=== PATIENT | male | born 1965 | race Caucasian/White ===

== ENCOUNTER 2023-03-22 13:52 | Emergency (ER) | payer OTHER ==
[~2023-03-22] VITALS: Ht 175.3 cm; Wt 88.5 kg
[~2023-03-22 13:52] MED LIST: KETO10TA2 PO; NORFLEX100 MG PO; ORPH100T PO; TORADOL10 MG PO
[2023-03-22] MEDS ORDERED: LOSARTAN POTAS100 MG (14:02)
[2023-03-22] MEDS ORDERED: SYNTHROID75 MCG (14:02)
[2023-03-22 14:44] LABS: HEMATOCRIT 39.7 % (39.0-48.0); HEMOGLOBIN 13.1 g/dL (13-16.00); MEAN CORPUSCULAR HEMOGLOBIN 29.6 pg (27.00-32.0); MEAN CORPUSCULAR HGB CONC 32.9 g/dl (32.0-36.0); PLATELET COUNT 180 K/uL (150-450); RED BLOOD COUNT 4.41 M/uL (4.00-6.00); RED CELL DISTRIBUTION WIDTH 14.5 % (11.5-14.5)
[2023-03-22 14:51] LABS: CALCIUM 8.8 mg/dL (8.5-10.1); CREATININE SERUM 1.37 mg/dL (0.70-1.30); GFR 53.18; POTASSIUM 4.19 mEq/L (3.5-5.1)
[2023-03-22 15:18] LABS: PH,URINE 5.5 (5.0-8.0); URINE APPEARANCE Clear; URINE BILIRRUBIN Negative (NEGATIVE); URINE BLOOD Negative; URINE COLOR Yellow; URINE GLUCOSE Negative (NEGATIVE); URINE LEUKOCYTE Negative; URINE NITRATE Negative; URINE PROTEIN Negative (NEGATIVE)
[2023-03-22 15:19] LABS: URINE BACTERIA 70.5 uL (0.0-1933); URINE EPITHELIAL CELLS 3.5 uL (0.0-38.8); URINE RBC 2.8 uL (0.0-20.8); URINE WBC 2.6 uL (0.0-23.2)
== END 2023-03-22 16:07 | disposition home or self-care (01) ==
LOC: ER 13:52
PROVIDERS: General Practice
DX: G45.9 Transient cerebral ischemic attack, unspecified (principal)